=== PATIENT | female | born 1980 | race Caucasian/White ===

== ENCOUNTER 2018-08-20 16:11 | Emergency (ER) | payer OTHER ==
[2018-08-20 16:12] VITALS: BMI 43.2
--- NOTE | 2018-08-20 16:49 | ED PDOC ---
HPI: Chest Pain <Fuentes Resendiz - Last Filed: 08/20/18 16:45> History Per: Patient Additional Complaint(s): Pt is a 38 y/o female sent to ED from PMD's office due to cough and hemoptysis. Pt states she has a productive cough for 1 week that occasionally had blood tinge and this morning she coughed a large amount of bright red blood after a coughing fit. She has also had subjective fevers, nausea, one episode of vomiting this morning, and chest tightness and shortness of breath associated with cough. Sick contacts: daughter Denies abdominal pain, dysuria, LE swelling, night sweats, weight loss, recent travel or exposure to TB, use of estrogen, prolonged immobility, or hx of clots. PMD:Dr. Ramirez <Dat Rolle - Last Filed: 08/20/18 18:53> Time Seen by Provider: 08/20/18 16:33 Chief Complaint (Nursing): Flu-like Symptoms Past Medical History Vital Signs: Last Vital Signs Temp 99.1 F 08/20/18 16:24 Pulse 109 H 08/20/18 16:24 Resp 16 08/20/18 16:24 BP 131/85 08/20/18 16:24 Pulse Ox 98 08/20/18 16:24 - Medical History PMH: Gastritis Denies: Depression <Fuentes Resendiz - Last Filed: 08/20/18 16:45> Vital Signs: Last Vital Signs Temp 99.1 F 08/20/18 16:24 Pulse 109 H 08/20/18 16:24 Resp 16 08/20/18 16:24 BP 131/85 08/20/18 16:24 Pulse Ox 98 08/20/18 16:49 - Surgical History Surgical History: No Surg Hx - Family History Family History: States: No Known Family Hx <Dat Rolle - Last Filed: 08/20/18 18:53> - Home Medications Home Medications: Ambulatory Orders Medication Instructions Recorded Cyclobenzaprine HCl [Flexeril] 10 mg PO Q8H PRN #15 tab 08/18/13 Ketorolac Tromethamine [Toradol] 10 mg PO Q6H PRN #15 tab 08/18/13 Famotidine [Pepcid] 20 mg PO Q12 #14 tab 01/27/15 Ondansetron ODT [Zofran ODT] 4 mg PO Q6H PRN #16 odt 01/27/15 Amoxicillin 875 mg PO BID #14 tab 06/27/15 oxyCODONE/Acetaminophen [Percocet 1 ea PO Q6H PRN #12 tab 06/27/15 5/325 mg Tab] Azithromycin [Zithromax] 250 mg PO DAILY #6 tab 08/20/18 Benzonatate [Tessalon Perle] 100 mg PO Q8 #12 capsule 08/20/18 - Allergies Allergies/Adverse Reactions: Allergies Allergy/AdvReac Type Severity Reaction Status Date / Time No Known Allergies Allergy Verified 08/20/18 16:27 Wells Criteria for PE - Wells Criteria for Pulmonary Embolism Clinical Signs and Symptoms of DVT: No P.E is #1 Diagnosis, or Equally Likely: No Heart Rate >100: Yes Immobilization at least 3 days;Surgery previous 4 weeks: No Previous, objectively diagnosed PE or DVT: No Hemoptysis: Yes Malignancy w/treatment within 6 months, or palliative: No Total Score: 2.5 <Dat Rolle - Last Filed: 08/20/18 18:53> Review of Systems Constitutional: Positive for: Fever. Negative for: Chills Cardiovascular: Negative for: Palpitations Respiratory: Positive for: Cough, Shortness of Breath, Hemoptysis Gastrointestinal: Positive for: Nausea, Vomiting. Negative for: Abdominal Pain, Diarrhea <Dat Rolle - Last Filed: 08/20/18 18:53> Physical Exam - Physical Exam Appears: Positive for: No Acute Distress Skin: Positive for: Normal Color. Negative for: Diaphoresis, Pallor ENT: Positive for: Nasal Congestion. Negative for: Pharyngeal Erythema, Tonsillar Exudate Cardiovascular/Chest: Positive for: Tachycardia, Other (No chest wall tenderness). Negative for: Murmur, Friction Rub Respiratory: Positive for: Normal Breath Sounds (seen breathing comfortably, h igh pitched ronchi, clears with cough), Rhonchi. Negative for: Accessory Muscle Use, Crackles, Rales, Wheezing Gastrointestinal/Abdominal: Positive for: Normal Exam, Bowel Sounds, Soft. Negative for: Tenderness Neurologic/Psych: Positive for: Alert, Oriented <Dat Rolle - Last Filed: 08/20/18 18:53> - ECG O2 Sat by Pulse Oximetry: 98 <JeromyFuentes fofana - Last Filed: 08/20/18 16:45> - Laboratory Results Result Diagrams: 08/20/18 17:41 08/20/18 17:41 <Dat Rolle - Last Filed: 08/20/18 18:53> Medical Decision Making Medical Decision Making: Pt is a 38 y/ female with cough and hemoptysis. Low risk PE. No TB risk factors or active symptoms. Likely related to URI Influenza Rapid AB CBC CMP DDimer Chest Xray EKG NS x1L bolus Zofran Labs normal other than mild transaminitis which pt states is always mildly elevated. D-dimer negative ruling out PE Cxray normal <Dat Rolle - Last Filed: 08/20/18 18:53> Disposition <Fuentes Resendiz - Last Filed: 08/20/18 16:45> - Disposition Disposition Time: 18:53 <Dat Rolle - Last Filed: 08/20/18 18:53> - Clinical Impression Clinical Impression: Bronchitis - Disposition Referrals: [facility] [Outside] Condition: FAIR Prescriptions: Azithromycin [Zithromax] 250 mg PO DAILY #6 tab Benzonatate [Tessalon Perle] 100 mg PO Q8 #12 capsule Instructions: Acute Bronchitis Forms: [facility] (Greenlandic)
[2018-08-20] MEDS ORDERED: Sodium Chloride 0.9% 1,000 ML IV ONE (17:00)
[2018-08-20 17:48] LABS: BASO % 0.8 % (0.0-2.0); HEMOGLOBIN 15.1 g/dL (12.0-16.0); LYMPH # 1.3 K/uL (1.0-4.3); LYMPH % 25.1 % (20.0-40.0); MEAN CELL VOLUME 93.7 fl (81.0-99.0); MEAN CORPUSCULAR HEMOGLOBIN 31.6 pg (27.0-31.0); MEAN CORPUSCULAR HGB CONC 33.8 g/dL (33.0-37.0); MEAN PLATELET VOLUME 10.8 fl (7.2-11.7); MONO # 0.5 K/uL (0.0-0.8); MONO % 9.8 % (0.0-10.0); NEUT # 3.2 K/uL (1.8-7.0); NEUT % 63.3 % (50.0-75.0); NRBC % 0.1 % (0.0-0.0); RBC 4.76 Mil/uL (3.80-5.20); RED CELL DISTRIBUTION WIDTH 12.5 % (11.5-14.5)
--- NOTE | 2018-08-20 17:57 | RAD ---
Date of service: 08/20/2018 HISTORY: cough, hemoptysis COMPARISON: No prior. FINDINGS: LUNGS: No active pulmonary disease. PLEURA: No significant pleural effusion identified, no pneumothorax apparent. CARDIOVASCULAR: No atherosclerotic calcification present Normal. OSSEOUS STRUCTURES: No significant abnormalities. VISUALIZED UPPER ABDOMEN: Normal. OTHER FINDINGS: None. IMPRESSION: No active disease.
[2018-08-20 18:02] LABS: ALB/GLOB RATIO 0.9 (1.0-2.1); ALBUMIN 3.9 g/dL (3.5-5.0); ALT/SGPT 85 U/L (9-52); AST/SGOT 70 U/L (14-36); BLOOD UREA NITROGEN 10 mg/dl (7-17); CALCIUM 9.6 mg/dL (8.4-10.2); GFR NON-AFRICAN AMERICAN > 60
[2018-08-20 18:42] VITALS: BP 141/80; PULSE 108; RESP 18; TEMP 99.3; O2SAT 97
== END 2018-08-20 18:41 | disposition home or self-care (01) ==
LOC: H.ER 16:11
DX: J40 Bronchitis, not specified as acute or chronic (principal)
CPT/HCPCS: 71045; 80053; 85025; 85378; 87804; 96361; 96374; 99283; J2405; J7030